=== PATIENT | female | born 1965 | race African-American/Black ===

== ENCOUNTER 2020-12-21 10:48 | Observation (INO) ==
[2020-12-21] MEDS ORDERED: ONDANSETRON 4 MG/2 ML VIAL IV ONE (10:55)
[2020-12-21] MEDS ORDERED: MORPHINE 4 MG/1 ML VIAL IV ONE (10:55)
[2020-12-21] MEDS ORDERED: ONDANSETRON 4 MG/2 ML VIAL IV PRN (12:10)
[2020-12-21] MEDS ORDERED: HYDROmorphone 2 MG/1 ML VIAL IV PRN (12:10)
[2020-12-21] MEDS ORDERED: PROMETHAZINE 25 MG/1 ML VIAL IM PRN (12:10)
[2020-12-21] MEDS ORDERED: MAGNESIUM HYDROXIDE SUSP 30 ML UDCUP PO PRN (12:10)
[2020-12-21 13:08] LABS: Basophils # 0.1 10*3/uL (0.0-0.2); Basophils % 0.9 % (0.0-0.8); Eosinophils # 0.1 10*3/uL (0.0-0.87); Eosinophils % 0.9 % (0.00-10.9); Hematocrit 45.8 VOL% (35.7-47.0); Hemoglobin 14.6 GM/DL (12.0-16.0); Immature Granulocytes % 0.2 %; Immature Granulocytes Absolute 0.01 #; Lymphocytes # 1.4 10*3/uL (1.4-4.0); Mean Corpuscular HGB Conc 31.9 GM/DL (32-36); Mean Corpuscular Volume 92.2 FL (87-102); Mean Platelet Volume 10.5 FL (9.6-12.0); Monocytes % 5.7 % (1.7-12.7); Neutrophils % 66.3 % (38.7-73.9); Platelet Count 268 T/CUMM (130-400); Red Blood Count 4.97 MC/CUMM (3.8-5.5); Red Cell Distribution Width 13.6 % (9.3-17.3); White Blood Count 5.5 T/CUMM (4-12)
[2020-12-21 13:18] LABS: PT Patient Result 11.1 SECS (10.5-12.0)
[2020-12-21] MEDS ORDERED: MIDAZOLAM 2 MG/2 ML VIAL ONE (13:21)
[2020-12-21] MEDS ORDERED: fentaNYL 100 MCG/2 ML VIAL ONE (13:21)
[2020-12-21] MEDS ORDERED: propofoL 200 MG/20 ML VIAL IV ONE (13:21)
[2020-12-21] MEDS ORDERED: SEVOFLURANE 1 UNIT/15 MINUTE INH ONE (13:22)
[2020-12-21] MEDS ORDERED: LIDOCAINE 2% 5 ML VIAL ONE (13:22)
[2020-12-21] MEDS ORDERED: ROCURONIUM 50 MG/5 ML VIAL IV ONE (13:32)
[2020-12-21] MEDS ORDERED: ONDANSETRON 4 MG/2 ML VIAL ONE ×2 (13:32→14:16)
[2020-12-21 13:43] LABS: Albumin 4.3 G/DL (3.4-5.0); Bilirubin,Total 0.4 MG/DL (0.2-1.0); Calcium 9.4 MG/DL (8.5-10.1); Osmolality,Calculated 277.5 MOS/KG (273-304); Potassium 4.7 MMOL/L (3.5-5.1); Total Protein 8.2 G/DL (6.4-8.2)
[2020-12-21] MEDS ORDERED: LACTATED RINGERS 1,000 ML IV ONE (13:48)
[2020-12-21] MEDS ORDERED: ceFAZolin 1,000 MG VIAL ONE (14:12)
[2020-12-21] MEDS ORDERED: DEXAMETHASONE 4 MG/1 ML VIAL ONE (14:16)
[2020-12-21] MEDS ORDERED: GLYCOPYRROLATE 0.4 MG/2 ML VIAL ONE (14:49)
[2020-12-21] MEDS ORDERED: HYDROmorphone 2 MG/1 ML VIAL ONE (14:50)
[2020-12-21] MEDS: SODIUM CHLORIDE 0.9% 1,000 ML IV SCH (16:10)
[2020-12-22] MEDS: SODIUM CHLORIDE 0.9% 1,000 ML IV SCH ×2 (03:01→09:42)
[2020-12-22 09:45] LABS: Hematocrit 36.8 VOL% (35.7-47.0)
[2020-12-22 09:49] LABS: Hemoglobin 11.9 GM/DL (12.0-16.0)
[2020-12-23 16:16] VITALS: BP 123/67
== END 2020-12-23 17:20 | disposition home or self-care (01) ==
LOC: N.ED 10:48 → N.EDINP 10:48 → N.3E 12:48
PROVIDERS: ADMIT Orthopaedic Surgery; ATTEND Orthopaedic Surgery